=== PATIENT | female | born 1935 ===

== ENCOUNTER 2021-04-27 07:16 | Outpatient (CLI) | payer OTHER | END 2021-04-27 07:20 | disposition home or self-care (01) | LOC: NUCLEAR 07:16 | PROVIDERS: ATTEND Internal Medicine Gastroenterology | DX: R10.11 Right upper quadrant pain (principal) | CPT/HCPCS: 78226; A9537; J2805 ==

== ENCOUNTER 2021-04-28 08:10 | Outpatient (CLI) | payer OTHER | END 2021-04-28 08:18 | disposition home or self-care (01) | LOC: RX STUDY 08:10 | PROVIDERS: ATTEND Internal Medicine Gastroenterology | DX: R13.10 Dysphagia, unspecified (principal) ==

== ENCOUNTER 2023-05-22 11:39 | Outpatient (CLI) | payer OTHER | END 2023-05-22 11:50 | disposition home or self-care (01) | LOC: TOM 11:39 | PROVIDERS: ATTEND Internal Medicine Rheumatology | DX: I62.00 Nontraumatic subdural hemorrhage, unspecified (principal) ==